=== PATIENT | female | born 1930 | race Caucasian/White ===

== ENCOUNTER 2019-04-05 05:09 | Emergency (ER) | payer MEDICARE, MEDICAID ==
[~2019-04-05] VITALS: Ht 154.9 cm; Wt 71.7 kg
[~2019-04-05 05:09] MED LIST: VALS40TA4
[2019-04-05 05:47] LABS: APPEARANCE,URINE Clear (CLEAR); BILIRUBIN,URINE Negative (NEGATIVE); BLOOD, URINE Trace-lysed Ery/uL (NEGATIVE); COLOR,URINE Yellow (YELLOW); KETONES,URINE Negative (NEGATIVE); LEUKOCYTE ESTERASE ,URINE Small (NEGATIVE); NITRITE, URINE Negative (NEGATIVE); PROTEIN,URINE Negative (NEGATIVE); UGLUCOSE Negative (NEGATIVE); UROBILINOGEN,URINE 0.2 EU/dL (0.2)
[2019-04-05 05:58] LABS: BACTERIA,URINE Few /HPF (None Seen); SQUAMOUS EPITHELIAL CELL,UR Few /HPF (None Seen)
[2019-04-05 06:00] LABS: BASOPHILS % (AUTO) 0.4 % (0.0-2.0); HEMATOCRIT 34 % (33-45); HEMOGLOBIN 10.6 g/dL (11.5-14.8); LYMPHOCYTES # (AUTO) 1.6 /CMM (0.8-4.8); LYMPHOCYTES % (AUTO) 16.2 % (20.0-44.0); MEAN CORPUSCULAR HGB CONC 31 g/dl (31.0-36.0); MEAN CORPUSCULAR VOLUME 78 fL (82-100); MONOCYTES # (AUTO) 0.5 /CMM (0.1-1.30); MONOCYTES % (AUTO) 4.7 % (2.0-12.0); NEUTROPHILS # (AUTO) 7.8 /CMM (1.8-8.9); NEUTROPHILS % (AUTO) 77.7 % (43.0-81.0); PLATELET COUNT (AUTO) 269 /CMM (150-450); RED BLOOD CELL COUNT(AUTO) 4.35 MIL/uL (4.0-5.2)
--- NOTE | 2019-04-05 06:03 | NUR ---
BIBRA. C/O "HAVING INTERMITTENT ABD PAIN, ON AND OFF, FELT MY BLOOD PRESSURE RISE A BIT, 160/80 AT HOME. HIGHER THAN MY BASELINE, HAVING FREQUENCY W/ URINATION" VSS. AXO4. AMBULATORY. -SOB -N/V -DIZZY NOTED.
[2019-04-05 06:16] LABS: CALCIUM, SERUM 9.1 mg/dL (8.5-10.1); CARBON DIOXIDE 25 mmol/L (21-32); CHLORIDE 100 mmol/L (98-107); CREATININE 0.6 mg/dL (0.6-1.3); GLUCOSE 129 mg/dL (74-106); POTASSIUM 4.6 mmol/L (3.5-5.1); SODIUM SERUM 135 mmol/L (136-145); UREA NITROGEN, BLOOD 14 mg/dL (7-18)
[2019-04-05 06:22] LABS: ALANINE AMINOTRANSFERASE 14 U/L (12-78); ALBUMIN 3.5 g/dL (3.4-5.0); ALKALINE PHOSPHATASE 78 U/L (46-116); ASPARTATE AMINOTRANSFERASE 13 U/L (15-37); BILIRUBIN,DIRECT 0.1 mg/dL (0.0-0.2); BILIRUBIN,TOTAL 0.5 mg/dL (0.2-1.0); LIPASE 74 U/L (73-393); TOTAL PROTEIN, SERUM 7.2 g/dL (6.4-8.2)
[2019-04-05] MEDS ORDERED: ONDANSETRON HCL/PF 4 MG/2 ML VIAL ONE (07:58)
[2019-04-05] MEDS ORDERED: ONDANSETRON HCL/PF - ER 4 MG/2 ML VIAL IV ONE (08:00)
[2019-04-05] MEDS ORDERED: IV NS 0.9% 500 ML BAG IV ONE (08:00)
--- NOTE | 2019-04-05 08:44 | NUR ---
LUI ALVARADO WILL ANIMAL SERVICES OFFICER PATIENT IN 30MIN, CONTACT NUMBER: [phone]
--- NOTE | 2019-04-05 09:12 | NUR ---
Patient discharged to home in stable condition. Written and verbal after care instructions given. Patient verbalizes understanding of instruction.IV removed. Catheter intact and site benign. Pressure and 4x4 applied to site. No bleeding noted.
[2019-04-05 09:13] VITALS: BP 131/77
== END 2019-04-05 09:16 | disposition home or self-care (01) ==
LOC: ER 05:11
DX: R11.2 Nausea with vomiting, unspecified (principal); R10.84 Generalized abdominal pain; I10 Essential (primary) hypertension; Z90.89 Acquired absence of other organs
CPT/HCPCS: 36415; 74176; 80048; 80076; 81001; 83605; 83690; 84484; 85025; 85730; 87040 ×2; 87086; 93005; 96374; 99284; J2405; J7040; 81000-TC

== ENCOUNTER 2019-06-14 05:55 | Inpatient (IN) | payer MEDICARE, MEDICAID ==
[~2019-06-14] VITALS: Ht 157.5 cm; Wt 68.0 kg
--- NOTE | 2019-06-14 06:00 | NUR ---
PT BIBRA C/C DIZZINESS, ABD PAIN WITH NAUSEA SINCE 199. PT C/O URINARY FREQUENCY. PT DENIES VOMITTING. PT AOX4. RESP EVEN AND UNLABORED. PT ON MONITOR IN BED 4. WILL CONTINUE TO MONITOR.
--- NOTE | 2019-06-14 06:27 | NUR ---
TIANA INITIATED. BLOOD DRAWN.
[2019-06-14] MEDS ORDERED: ACETAMINOPHEN ES 500 MG TABLET ONE (06:29)
[2019-06-14] MEDS ORDERED: ONDANSETRON HCL/PF 4 MG/2 ML VIAL ONE ×2 (06:29→08:33)
[2019-06-14] MEDS ORDERED: MORPHINE SULFATE INJ 2 MG/ML DISP.SYRIN ONE (06:29)
[2019-06-14] MEDS ORDERED: ONDANSETRON HCL/PF 4 MG/2 ML VIAL IVP ONE (06:30)
[2019-06-14] MEDS ORDERED: ACETAMINOPHEN ES 500 MG TABLET PO ONE (06:30)
[2019-06-14] MEDS ORDERED: MORPHINE SULFATE INJ 2 MG/ML DISP.SYRIN IV ONE (06:30)
--- NOTE | 2019-06-14 06:45 | NUR ---
PHLEB AT BEDSIDE FOR LAB DRAW
--- NOTE | 2019-06-14 06:46 | NUR ---
PT UNABLE TO PROVIDE URINE AT THIS TIME
[2019-06-14 07:14] LABS: BASOPHILS % (AUTO) 0.4 % (0.0-2.0); EOSINOPHILS % (AUTO) 1.8 % (0.0-6.0); HEMATOCRIT 29 % (33-45); HEMOGLOBIN 9.2 g/dL (11.5-14.8); LYMPHOCYTES % (AUTO) 14.3 % (20.0-44.0); MEAN CORPUSCULAR HGB CONC 31 g/dl (31.0-36.0); MEAN CORPUSCULAR VOLUME 75 fL (82-100); MONOCYTES # (AUTO) 0.5 /CMM (0.1-1.30); MONOCYTES % (AUTO) 7.2 % (2.0-12.0); NEUTROPHILS # (AUTO) 5.2 /CMM (1.8-8.9); NEUTROPHILS % (AUTO) 76.3 % (43.0-81.0); PLATELET COUNT (AUTO) 307 /CMM (150-450); RED BLOOD CELL COUNT(AUTO) 3.91 MIL/uL (4.0-5.2); WHITE BLOOD COUNT (AUTO) 6.8 K/uL (4.3-11.0)
[2019-06-14 07:17] LABS: CARBON DIOXIDE 22 mmol/L (21-32); CHLORIDE 105 mmol/L (98-107); CREATININE 0.5 mg/dL (0.6-1.3); GLUCOSE 140 mg/dL (74-106); POTASSIUM 4.6 mmol/L (3.5-5.1); SODIUM SERUM 139 mmol/L (136-145); UREA NITROGEN, BLOOD 14 mg/dL (7-18)
[2019-06-14 07:30] LABS: ALANINE AMINOTRANSFERASE 9 U/L (12-78); ALKALINE PHOSPHATASE 67 U/L (46-116); ASPARTATE AMINOTRANSFERASE 12 U/L (15-37); BILIRUBIN,DIRECT 0.1 mg/dL (0.0-0.2); BILIRUBIN,TOTAL 0.3 mg/dL (0.2-1.0); LIPASE 68 U/L (73-393); TOTAL PROTEIN, SERUM 6.5 g/dL (6.4-8.2)
--- NOTE | 2019-06-14 07:42 | NUR ---
PT SENT TO BR VOIDED UA SENT TO LAB
[2019-06-14 08:13] LABS: APPEARANCE,URINE Clear (CLEAR); BILIRUBIN,URINE Negative (NEGATIVE); BLOOD, URINE Trace-lysed Ery/uL (NEGATIVE); COLOR,URINE Yellow (YELLOW); KETONES,URINE Negative (NEGATIVE); LEUKOCYTE ESTERASE ,URINE Small (NEGATIVE); NITRITE, URINE Negative (NEGATIVE); PROTEIN,URINE Negative (NEGATIVE); UGLUCOSE Negative (NEGATIVE); UROBILINOGEN,URINE 0.2 EU/dL (0.2)
[2019-06-14 08:23] LABS: BACTERIA,URINE None seen /HPF (None Seen); MUCUS,URINE Few /LPF (None Seen); RBC,URINE 0-2 /HPF (0-2); SQUAMOUS EPITHELIAL CELL,UR Moderate /HPF (None Seen)
[2019-06-14] MEDS ORDERED: ONDANSETRON HCL/PF - ER 4 MG/2 ML VIAL IV ONE (09:00)
[2019-06-14] MEDS ORDERED: CEFTRIAXONE 1GM BAG (ER ONLY) 1 GM/50 ML PIGGYBACK IV ONE (09:00)
--- NOTE | 2019-06-14 09:01 | NUR ---
PT N/V ZOFRAN 4 MG IVP NOW GIANNI GIVEN PER MD ORDER
[2019-06-14] MEDS ORDERED: CEFTRIAXONE 1GM BAG (ER ONLY) 50 ML IV ONE (09:03)
[2019-06-14] MEDS ORDERED: AMLO5TAB9 PO (10:08)
[2019-06-14] MEDS ORDERED: ERGO500040 PO (10:08)
[2019-06-14] MEDS ORDERED: VALS160T29 PO (10:08)
[2019-06-14] MEDS ORDERED: ESOM40CA52 PO (10:08)
[2019-06-14] MEDS ORDERED: FERR325T24 PO (10:08)
[2019-06-14] MEDS ORDERED: DOCU250C89 PO (10:08)
[2019-06-14] MEDS ORDERED: ATOR10TA PO (10:08)
[2019-06-14] MEDS ORDERED: CELE-85 PO (10:08)
[2019-06-14] MEDS ORDERED: MECL-102 PO (10:08)
--- NOTE | 2019-06-14 10:24 | NUR ---
PT IS ASSIGNED TO BED 324 PER NURSING NITROCELLULOSE OPERATOR.
--- NOTE | 2019-06-14 10:36 | NUR ---
PANEL ON-CALL PAGED
[2019-06-14] MEDS ORDERED: Z GUARD REMEDY 2 OZ OINT TP PRN (11:30)
[2019-06-14] MEDS ORDERED: ACETAMINOPHEN 325 MG TABLET PO PRN (11:30)
[2019-06-14] MEDS ORDERED: ZOLPIDEM TARTRATE 5 MG TABLET PO PRN (11:30)
[2019-06-14] MEDS ORDERED: MAG HYDROX/AL HYDROX/SIMETH 30 ML UDC PO PRN (11:30)
[2019-06-14] MEDS ORDERED: MAGNESIUM HYDROXIDE 30 ML UDC PO PRN (11:30)
[2019-06-14] MEDS ORDERED: ONDANSETRON HCL/PF 4 MG/2 ML VIAL IVP PRN (11:30)
--- NOTE | 2019-06-14 11:43 | NUR ---
PT STABLE FOR TRANSFER TO FLOOR 324 REOPRT CALL
--- NOTE | 2019-06-14 11:55 | NUR ---
RN MS NOTES Patient received from ER at this time, no sob noted, patient shows no s/s of pain at this time. R AC #20 remains patent at this time. Patient able to walk around with good balance and gait. Mostly farci speaking with very little englist. Bed at the lowest setting, call light within reach, side rails up x2.
[2019-06-14 12:25] VITALS: BP 114/70
[2019-06-14] MEDS: IV NS 0.9% 1,000 ML IV SCH ×2 (12:54→22:57)
[2019-06-14 16:00] VITALS: BP 95/57
[2019-06-14] MEDS: MECLIZINE HCL 25 MG TABLET PO SCH (16:51)
--- NOTE | 2019-06-14 18:43 | NUR ---
RN MS CLOSING NOTES Patient remains on room air, no sob noted, vital signs stable. A/O x4 and speaks mostly farsi and south sudanese. BRP with R ac 20 with 100 ml per hour NS. Bed at the lowest setting, call light within reach, side rails up x2. Will give report to NOC RN for YESENIA bedside.
[2019-06-14] MEDS: HYDROCODONE/APAP 5/325MG 1 EACH TABLET PO PRN (18:56)
--- NOTE | 2019-06-14 19:20 | NUR ---
MS/RN NOTES RECEIVED PT. LYING IN BED. PT. IS AWAKE, ALERT AND ORIENTED X3, FARSI SPEAKING. BREATHING EVEN AND UNLABORED ON ROOM AIR. NO SOB, RESPIRATORY DISTRESS OR COMPLAINTS OF PAIN NOTED AT THIS TIME. NO COMPLAINTS OF FEELING LIGHTHEADED OR DIZZY NOTED AT THIS TIME. PT. WITH RIGHT AC 20 GAUGE PERIPHERAL IV PRESENT, PATENT AND INTACT ADMINISTERING TO PT. NS @ 100 ML/HR. PT. FAMILY MEMBER PRESENT AT BEDSIDE. BED LOCKED AND IN LOWEST POSITION, SIDE RAILS UP X2, BED ALARM ON, CALL LIGHT WITHIN REACH, WILL CONTINUE TO MONITOR.
[2019-06-14 20:00] VITALS: BP 107/69
[2019-06-14] MEDS: ATORVASTATIN 10 MG TABLET PO SCH (21:52)
--- NOTE | 2019-06-15 06:23 | NUR ---
MS/RN NOTES PT. IS LYING IN BED RESTING. BREATHING EVEN AND UNLABORED ON ROOM AIR. NO SOB, RESPIRATORY DISTRESS OR COMPLAINTS OF PAIN NOTED AT THIS TIME. PT. WITH RIGHT AC 20 GAUGE PERIPHERAL IV PRESENT, PATENT AND INTACT ADMINISTERING TO PT. NS @ 100 ML/HR. ALL PT. NEEDS MET. BED LOCKED AND IN LOWEST POSITION, SIDE RAILS UP X2, BED ALARM ON, CALL LIGHT WITHIN REACH, WILL ENDORSE TO DAYSHIFT NURSE FOR CONTINUITY OF CARE.
[2019-06-15 07:24] LABS: BASOPHILS % (AUTO) 0.6 % (0.0-2.0); EOSINOPHILS % (AUTO) 3.6 % (0.0-6.0); HEMATOCRIT 30 % (33-45); HEMOGLOBIN 9.3 g/dL (11.5-14.8); LYMPHOCYTES # (AUTO) 1.3 /CMM (0.8-4.8); LYMPHOCYTES % (AUTO) 22.7 % (20.0-44.0); MEAN CORPUSCULAR HGB CONC 31 g/dl (31.0-36.0); MEAN CORPUSCULAR VOLUME 76 fL (82-100); MONOCYTES # (AUTO) 0.5 /CMM (0.1-1.30); NEUTROPHILS # (AUTO) 3.7 /CMM (1.8-8.9); NEUTROPHILS % (AUTO) 65.1 % (43.0-81.0); PLATELET COUNT (AUTO) 271 /CMM (150-450); RED BLOOD CELL COUNT(AUTO) 3.96 MIL/uL (4.0-5.2); WHITE BLOOD COUNT (AUTO) 5.7 K/uL (4.3-11.0)
[2019-06-15] MEDS: PANTOPRAZOLE 40 MG TABLET.DR PO SCH (07:30)
[2019-06-15 07:49] LABS: CALCIUM, SERUM 8.5 mg/dL (8.5-10.1); CREATININE 0.6 mg/dL (0.6-1.3); MAGNESIUM 1.9 mg/dL (1.8-2.4); PHOSPHORUS 4.1 mg/dL (2.5-4.9); POTASSIUM 4.2 mmol/L (3.5-5.1)
[2019-06-15 08:00] VITALS: BP 93/54
[2019-06-15] MEDS: VALSARTAN 80 MG TABLET PO SCH ×2 (09:00→17:28)
[2019-06-15] MEDS: AMLODIPINE BESYLATE 5 MG TABLET PO SCH (09:00)
[2019-06-15] MEDS: IV NS 0.9% 1,000 ML IV SCH (09:16)
[2019-06-15] MEDS: CEFTRIAXONE 1 G in IV D5W 50 ML IV SCH (09:16)
[2019-06-15] MEDS: CELECOXIB 100 MG CAPSULE PO SCH (09:37)
[2019-06-15] MEDS: DOCUSATE SODIUM 250 MG CAPSULE PO SCH (09:38)
[2019-06-15] MEDS: MECLIZINE HCL 25 MG TABLET PO SCH ×2 (09:38→17:28)
[2019-06-15] MEDS: FERROUS SULFATE (325 MG) 325 MG/TAB TABLET PO SCH (09:39)
--- NOTE | 2019-06-15 15:10 | NUR ---
A new IV line to thr right wrist esmer 22. Flushing well.
[2019-06-15 16:00] VITALS: BP 99/64
[2019-06-15] MEDS ORDERED: IV NS 0.9% 1,000 ML IV PRN (17:30)
--- NOTE | 2019-06-15 18:43 | NUR ---
Patient remains stable on room air, no sob noted, vital signs stable. A/O x4 , ambulatory with assistance . R wrist 22 esmer, fluids running as ordered. Bed at the lowest setting, call light within reach, side rails up x2. Will give report to NOC RN for YESENIA bedside.
[2019-06-15 20:00] VITALS: BP 104/59
[2019-06-15] MEDS: ATORVASTATIN 10 MG TABLET PO SCH (22:30)
[2019-06-16] MEDS: HYDROCODONE/APAP 5/325MG 1 EACH TABLET PO PRN (06:06)
[2019-06-16 06:38] LABS: BASOPHILS % (AUTO) 0.4 % (0.0-2.0); EOSINOPHILS % (AUTO) 5.8 % (0.0-6.0); HEMATOCRIT 28 % (33-45); HEMOGLOBIN 8.9 g/dL (11.5-14.8); LYMPHOCYTES # (AUTO) 1.4 /CMM (0.8-4.8); LYMPHOCYTES % (AUTO) 29.1 % (20.0-44.0); MEAN CORPUSCULAR HGB CONC 31 g/dl (31.0-36.0); MEAN CORPUSCULAR VOLUME 75 fL (82-100); MONOCYTES # (AUTO) 0.5 /CMM (0.1-1.30); MONOCYTES % (AUTO) 9.2 % (2.0-12.0); NEUTROPHILS # (AUTO) 2.7 /CMM (1.8-8.9); NEUTROPHILS % (AUTO) 55.5 % (43.0-81.0); PLATELET COUNT (AUTO) 248 /CMM (150-450); RED BLOOD CELL COUNT(AUTO) 3.77 MIL/uL (4.0-5.2); WHITE BLOOD COUNT (AUTO) 4.9 K/uL (4.3-11.0)
[2019-06-16 06:48] LABS: CALCIUM, SERUM 8.6 mg/dL (8.5-10.1); CREATININE 0.6 mg/dL (0.6-1.3); POTASSIUM 3.9 mmol/L (3.5-5.1)
[2019-06-16 08:00] VITALS: BP 114/55
[2019-06-16] MEDS: MECLIZINE HCL 25 MG TABLET PO SCH (08:57)
[2019-06-16] MEDS: VALSARTAN 80 MG TABLET PO SCH (08:57)
[2019-06-16] MEDS: CELECOXIB 100 MG CAPSULE PO SCH (08:57)
[2019-06-16] MEDS: DOCUSATE SODIUM 250 MG CAPSULE PO SCH (08:57)
[2019-06-16 08:58] VITALS: BP 114/55
[2019-06-16] MEDS: AMLODIPINE BESYLATE 5 MG TABLET PO SCH (08:58)
[2019-06-16] MEDS: FERROUS SULFATE (325 MG) 325 MG/TAB TABLET PO SCH (08:58)
[2019-06-16] MEDS: PANTOPRAZOLE 40 MG TABLET.DR PO SCH (09:00)
[2019-06-16] MEDS: CEFTRIAXONE 1 G in IV D5W 50 ML IV SCH (09:02)
--- NOTE | 2019-06-16 13:40 | NUR ---
patient cleared for d/c to home by . Patient alert and oriented x4 , daughter at bedside.D/C instructions and education provided: both verbalized understanding. Patient will continue on home meds ( no new meds prescribed). VS are stable and within baseline, on room air. Skin intact. IV assess removed, ID wrist band removed. All needs attended. Valuable form sighed and patient has all belongings including cell phone and transaction advisory services manager. Patient safely transferred to [facility] via wheelchair accompanied by SHANNON Becker and daughter
[2019-06-18] MEDS ORDERED: ERGOCALCIFEROL (VITAMIN D 2) 50,000 UNIT CAPSULE PO SCH (09:00)
== END 2019-06-16 13:40 | disposition home or self-care (01) | DRG 641 ==
LOC: ER 05:57 → MED 11:18
PROVIDERS: ADMIT Family Medicine; ATTEND Nurse Practitioner Acute Care
DX: E86.0 Dehydration (principal); E44.1 Mild protein-calorie malnutrition; I10 Essential (primary) hypertension; E88.09 Other disorders of plasma-protein metabolism, not elsewhere classified; D63.8 Anemia in other chronic diseases classified elsewhere; R73.9 Hyperglycemia, unspecified; R53.1 Weakness; Z68.27 Body mass index [BMI] 27.0-27.9, adult
CPT/HCPCS: 36415; 71045-TC; 80048-TC; 80061-TC; 80076-TC; 81000-TC; 83605-TC; 83690-TC; 83735-TC; 84100-TC; 84484-TC; 85025-TC; 87081-TC; 87086-TC; G0378; J0696; J2270; J2405; J7030; J7060; J8597

== ENCOUNTER 2019-08-18 07:44 | Inpatient (IN) | payer MEDICARE, MEDICAID ==
[~2019-08-18] VITALS: Ht 165.1 cm; Wt 75.3 kg
[~2019-08-18 07:44] MED LIST changes: +AMLO5TAB9 PO; +ATOR10TA PO; +CELE-85 PO; +DOCU250C89 PO; +ERGO500040 PO; +ESOM40CA52 PO; +FERR325T24 PO; +MECL-159 PO; +VALS160T29 PO; -VALS40TA4
--- NOTE | 2019-08-18 08:20 | NUR ---
[id number] from home, c/o bilateral foot pain and swelling x 1 month. Patient a/ox3, verbally responsive with italian perinatal educator. Patient c/o sob at times. Refused to change into a gown, Attached to the dining manager. No distress noted.
[2019-08-18 08:41] LABS: CALCIUM, SERUM 8.6 mg/dL (8.5-10.1); CARBON DIOXIDE 30 mmol/L (21-32); CHLORIDE 106 mmol/L (98-107); CREATININE 0.6 mg/dL (0.6-1.3); GLUCOSE 110 mg/dL (74-106); POTASSIUM 4.4 mmol/L (3.5-5.1); SODIUM SERUM 142 mmol/L (136-145); UREA NITROGEN, BLOOD 12 mg/dL (7-18)
[2019-08-18 08:42] LABS: BASOPHILS # (AUTO) 0.1 /CMM (0.0-0.2); BASOPHILS % (AUTO) 0.7 % (0.0-2.0); EOSINOPHILS % (AUTO) 2.5 % (0.0-6.0); HEMATOCRIT 31 % (33-45); HEMOGLOBIN 9.3 g/dL (11.5-14.8); LYMPHOCYTES # (AUTO) 0.8 /CMM (0.8-4.8); LYMPHOCYTES % (AUTO) 10.7 % (20.0-44.0); MEAN CORPUSCULAR HGB CONC 31 g/dl (31.0-36.0); MEAN CORPUSCULAR VOLUME 76 fL (82-100); MONOCYTES # (AUTO) 0.6 /CMM (0.1-1.30); MONOCYTES % (AUTO) 7.8 % (2.0-12.0); NEUTROPHILS # (AUTO) 5.7 /CMM (1.8-8.9); NEUTROPHILS % (AUTO) 78.3 % (43.0-81.0); PLATELET COUNT (AUTO) 308 /CMM (150-450); WHITE BLOOD COUNT (AUTO) 7.3 K/uL (4.3-11.0)
[2019-08-18 08:49] LABS: ALANINE AMINOTRANSFERASE 19 U/L (12-78); ALBUMIN 2.9 g/dL (3.4-5.0); ALKALINE PHOSPHATASE 65 U/L (46-116); ASPARTATE AMINOTRANSFERASE 20 U/L (15-37); BILIRUBIN,TOTAL 0.4 mg/dL (0.2-1.0); TOTAL PROTEIN, SERUM 6.3 g/dL (6.4-8.2)
--- NOTE | 2019-08-18 08:53 | NUR ---
ASSISTED PATIENT TO RESTROOM, URINE SAMPLE OBTAINED AND SENT TO LAB.
[2019-08-18 08:54] LABS: B-TYPE NATRIURETIC PEPTIDE 1777 PG/ML (0-125)
[2019-08-18] MEDS ORDERED: FUROSEMIDE 40 MG/4 ML VIAL ONE (09:26)
--- NOTE | 2019-08-18 09:29 | NUR ---
CALLED NURSING SUP FOR TELE BED.
[2019-08-18] MEDS ORDERED: FUROSEMIDE 40 MG/4 ML VIAL IV ONE (09:30)
[2019-08-18 09:35] LABS: APPEARANCE,URINE Clear (CLEAR); BACTERIA,URINE Few /HPF (None Seen); BILIRUBIN,URINE Negative (NEGATIVE); BLOOD, URINE Trace-lysed Ery/uL (NEGATIVE); COLOR,URINE Yellow (YELLOW); KETONES,URINE Negative (NEGATIVE); LEUKOCYTE ESTERASE ,URINE Small (NEGATIVE); NITRITE, URINE Negative (NEGATIVE); PH,URINE 5.5 (5.0-8.0); PROTEIN,URINE Trace mg/dl (NEGATIVE); SQUAMOUS EPITHELIAL CELL,UR Few /HPF (None Seen); UGLUCOSE Negative (NEGATIVE); UROBILINOGEN,URINE 0.2 EU/dL (0.2)
--- NOTE | 2019-08-18 09:40 | NUR ---
PAGED EPIC FOR PANNEL CALL.
--- NOTE | 2019-08-18 09:48 | NUR ---
BED 103
--- NOTE | 2019-08-18 09:57 | NUR ---
REPORT GIVEN TO FUAD BURT.
[2019-08-18] MEDS ORDERED: HYDROCODONE/APAP 10/325MG 1 EA TABLET PO PRN (10:00)
[2019-08-18] MEDS ORDERED: ENOXAPARIN SODIUM 40 MG/0.4 ML DISP.SYRIN SQ SCH (10:00)
[2019-08-18] MEDS ORDERED: MAGNESIUM HYDROXIDE 30 ML UDC PO PRN (10:00)
[2019-08-18] MEDS ORDERED: MAG HYDROX/AL HYDROX/SIMETH 30 ML UDC PO PRN (10:00)
[2019-08-18] MEDS ORDERED: ZOLPIDEM TARTRATE 5 MG TABLET PO PRN (10:00)
[2019-08-18] MEDS ORDERED: ONDANSETRON HCL/PF 4 MG/2 ML VIAL IVP PRN (10:00)
[2019-08-18] MEDS ORDERED: Z GUARD REMEDY 2 OZ OINT TP PRN (10:00)
[2019-08-18] MEDS ORDERED: ACETAMINOPHEN 325 MG TABLET PO PRN (10:00)
[2019-08-18] MEDS ORDERED: HYDROCODONE/APAP 5/325MG 1 EACH TABLET PO PRN (10:00)
--- NOTE | 2019-08-18 10:56 | NUR ---
PATIENT TRANSFERRED TO ROOM 103-1 VIA ACLS PROTOCOL . PATIENT IN STABLE CONDITION.
[2019-08-18 11:07] LABS: IRON, SERUM 16 ug/dl (50-175); TOTAL IRON BINDING CAPACITY 296 ug/dl (250-450)
[2019-08-18 11:10] VITALS: BP 118/69
--- NOTE | 2019-08-18 11:30 | NUR ---
PLANT GUARDCEREAL POPPER NOTE: PATIENT WAS BROUGHT IN FROM ER BY STAFF VIA GURNEY. PATIENT APPEARS CALM AND COOPERATIVE. NOT IN DISTRESS. ABLE TO AMBULATE INDEPENDENTLY. TOLERATING ROOM AIR WELL AND NO SOB NOTED. WITH IV SITE ON LAC G20, SITE CLEAN, DRY AND SECURE. ON CARDIAC MONITORING WITH VITAL SIGNS TAKEN AND NOTED. HEART RHYTHM NOTED BY COOKER PROCESS CHEESE WITH T WAVE ELEVATION. SEEN BY DOCTOR ADAM AND ECG ORDERED. PATIENT MAINLY COMMUNICATES VIA MONTSERRATIAN LANGUAGE AND RN WAS WITH A FLUENT MONTSERRATIAN-SPEAKING STAFFCHUY AT BEDSIDE FOR QUESTIONS. BELONGING FORMS WERE SIGNED. SKIN ASSESSMENT WAS REFUSED PATIENT STATED SHE DOES NOT HAVE ANY WOUNDS AND ONLY HAVE "LITTLE BLUE SPOTS" IN HER BODY. CALL LIGHT IN REACH, SIDE RAILS UP, BED LOCKED, LOW AND AT SEMI-CANO'S POSITION. WILL CONTINUE TO MONITOR.
[2019-08-18 12:00] VITALS: BP 118/69
--- NOTE | 2019-08-18 12:07 | NUR ---
TOWER HOIST OPERATOR NOTE: DR. PICKARD SAW THE PATIENT, ORDERED ECG. DR. MEDINA PREVIOUSLY ORDERED AND AWAITING ECG RESULTS.
--- NOTE | 2019-08-18 12:10 | NUR ---
FILLING STATION ATTENDANT NOTE: ECG RESULTED TO SINUS RHYTHM WITH HEART RATE OF 67
[2019-08-18] MEDS: FUROSEMIDE 40 MG/4 ML VIAL IV SCH ×2 (12:57→18:21)
[2019-08-18 16:00] VITALS: BP 140/79
--- NOTE | 2019-08-18 16:10 | NUR ---
AMMUNITION STOREKEEPER NOTE: PATIENT SIGNED TRANSFER FORM FOR HIGHER LEVEL OF CARE, PATIENT VERBALIZED UNDERSTANDING OF THE SITUATION AND DAUGHTER (GLENN) WAS AT BEDSIDE WHEN PATIENT SIGNED THE FORM. AWAITING FURTHER INFORMATION FROM CASE MANAGEMENT FOR PATIENT'S TRANSPORT.
--- NOTE | 2019-08-18 19:00 | NUR ---
orthopedic shoes salesperson opening notes Received Pt from morning nurse. Pt is alert and orientedX4. Pt is resting in bed watching TV. Pt speaks Luxembourgish and able to make needs known. Respiration is normal. No SOB. No nausea or vomiting. Pt denies any any pain or discomfort at this time. Per Am nurse Pt is going to be D/C tonight. Tele monitor showed sinus rhytm. IV sites LAC# 20 is clean, intact, patent and flush without resistance. Instructed to call. Safety precautions is maintained. Bed at low position, brakes locked, side rails upX3 and call light is within reach. Will continue to monitor.
--- NOTE | 2019-08-18 19:15 | NUR ---
LABORATORY WORKER CLOSING NOTE: PATIENT IN BED. AWAKE, ALERT AND ORIENTED X4. AWARE OF PLAN TO TRANSFER TO HIGHER LEVEL OF CARE. FORM WAS SIGNED EARLIER ON SHIFT. ON ROOM AIR, TOLERATING WELL. HEAD OF BED ELEVATED, NO SOB NOTED. NON PRODUCTIVE COUGH NOTED. PATIENT IS INDEPENDENT ON AMBULATION AND GOES TO THE BATHROOM FOR URINATION. 1600MLS URINE OUTPUT RECORDED. ON TELE MONITORING, SINUS RHYTHM IS NOTED. NO COMPLAINTS OF PAIN NOTED. CALL LIGHT IN REACH. BED LOCKED, LOW AND AT SEMI-CANO'S POSITION. ENDORSED TO ONCOMING SHIFT TO FOLLOW-UP ON PATIENT'S PLANNED TRANSFER.
--- NOTE | 2019-08-18 19:30 | NUR ---
MS RN NOTE: KEZIA FROM [facility] CALLED FOR PATIENT TRANSFER INSTRUCTIONS. INSTRUCTIONS WERE RECEIVED AND ENDORSED TO CHERYLE HELMS.
--- NOTE | 2019-08-18 19:47 | NUR ---
PATIENT REFUSED DUPLEX VENOUS LOWER EXT BI COM. PT PREFERS FEMALE TECH. TRY MIRANDA. RN NOTIFIED.
[2019-08-18 20:00] VITALS: BP 117/61
--- NOTE | 2019-08-18 20:02 | NUR ---
vp customer development notes Called ambulance and spoke to Evelio. Ambulance will come and transfer to [facility] room [facility] at 2230 pm ETA [id number]. Charge nurse is informed and aware.
--- NOTE | 2019-08-18 20:21 | NUR ---
carton wrapper notes Spoke to Heri from [facility] regarding Pt's transfer.
[2019-08-18] MEDS: VALSARTAN 40 MG TABLET PO SCH ×2 (20:46→22:53)
--- NOTE | 2019-08-18 20:46 | NUR ---
lineman a class notes Did not administered Valsartan 40 mg/PO because of decreased BP. BP 117/61, HR 64. Charge nurse is aware and informed. Will continue to monitor.
--- NOTE | 2019-08-18 21:09 | NUR ---
de alcoholizer notes Pt refused lipitor 10 mg/PO. Pt stated " I don't take this meds." Made aware risks and benefits. Pt keep refusing. Will continue to monitor.
[2019-08-18] MEDS ORDERED: ATORVASTATIN 10 MG TABLET PO SCH (22:00)
--- NOTE | 2019-08-18 22:03 | NUR ---
autopsy assistant notes Report given to CARMEL Rees [facility].
[2019-08-18 22:48] VITALS: BP 141/68
--- NOTE | 2019-08-18 23:03 | NUR ---
copper miner notes Administered Diovan 40mg/4 tabs/PO as ordered for BP per Pt' request. BP 141/68, HR 68 temp 98.7 respiration 20, O2 sat is 97%.
--- NOTE | 2019-08-18 23:12 | NUR ---
restaurant cashier notes Called Pt's son Shahbaz that Pt will be transfer to [facility].
[2019-08-18 23:20] VITALS: BP 128/70
--- NOTE | 2019-08-18 23:36 | NUR ---
construction mgr D/C notes [facility] ([facility] Polina and Ajit) came to transfered Pt to [facility]. Pt left at the hospital at 2336. Report was given to CARMEL Rees. Pt is in stable condition. VS is stable. Tele monitor showed sinus rhytm 70. Afebrile. ID band was removed. Pt is able to ambulate to nursing station and in the room without SOB. Routine meds was given as ordered. Pt refused skin assessment. Pt's belonging was checked, signed and gave to Pt. Pt's D/C form is signed, med recon, lab, and radiology. Pt verbalize understanding D/C instructions and education.
[2019-08-19] MEDS ORDERED: DOCUSATE SODIUM 250 MG CAPSULE PO SCH (09:00)
[2019-08-19] MEDS ORDERED: FERROUS SULFATE (325 MG) 325 MG/TAB TABLET PO SCH (09:00)
[2019-08-23] MEDS ORDERED: ERGOCALCIFEROL (VITAMIN D 2) 50,000 UNIT CAPSULE PO SCH (10:00)
== END 2019-08-18 11:36 | disposition short-term general hospital (02) | DRG 293 ==
LOC: ER 07:44 → TELE1 10:13
DX: I11.0 Hypertensive heart disease with heart failure (principal); R07.9 Chest pain, unspecified; I50.33 Acute on chronic diastolic (congestive) heart failure; E88.09 Other disorders of plasma-protein metabolism, not elsewhere classified; D50.9 Iron deficiency anemia, unspecified; Z83.3 Family history of diabetes mellitus; I35.0 Nonrheumatic aortic (valve) stenosis
CPT/HCPCS: 36415; 71045-TC; 80053-TC; 81000-TC; 83540-TC; 83880; 84484-TC; 85025-TC; 85610-TC; 85730-TC; 87081-TC; 93307-TC; G0378; J1650; J1940